=== PATIENT | male | born 1950 | race Caucasian/White ===

== ENCOUNTER 2017-05-27 18:44 | Emergency (ER) | payer OTHER, MEDICARE ==
--- NOTE | 2017-05-27 20:00 | ER Document Report ---
ED Medical Screen (RME) - General Chief Complaint: Headache Stated Complaint: HEADACHE Time Seen by Provider: 05/27/17 19:51 Notes: Patient states 2 years ago he fell down 18 steps. He states ever since he has had severe headaches. He states no workup or imaging has been done. He states that he takes 2-3 g of Tylenol at a time to try to alleviate the pain. TRAVEL OUTSIDE OF THE [place] IN LAST 30 DAYS: No - Related Data Allergies/Adverse Reactions: No Known Allergies Allergy (Verified 05/27/17 18:45) Past Medical History - Social History Chew tobacco use (# tins/day): No Frequency of alcohol use: None Drug Abuse: None - Past Medical History Cardiac Medical History: Reports: Hx Congestive Heart Failure, Hx Heart Attack - 12/2014, Hx Hypertension Pulmonary Medical History: Reports: Hx Asthma, Hx COPD Neurological Medical History: Denies: Hx Cerebrovascular Accident, Hx Seizures Renal/ Medical History: Denies: Hx Peritoneal Dialysis GI Medical History: Denies: Hx Hepatitis, Hx Hiatal Hernia, Hx Ulcer Musculoskeltal Medical History: Reports Hx Arthritis Psychiatric Medical History: Reports: Hx Depression Infectious Medical History: Denies: Hx Hepatitis Past Surgical History: Reports: Hx Cardiac Catheterization - 7stents, Hx Cardiac Surgery - 3 stents placed, Hx Coronary Stent - X7, Hx Neurologic Surgery - C-SPINE FUSION, Hx Orthopedic Surgery - knee, neck. Denies: Hx Open Heart Surgery, Hx Pacemaker - Immunizations Hx Diphtheria, Pertussis, Tetanus Vaccination: Yes History of Influenza Vaccine for 01/2017 - 06/2017 Season: Yes Influenza Administration Date for 01/2017 - 06/2017 Season: 01/04/17 Physical Exam - Vital signs Vitals: Temp Pulse Resp BP Pulse Ox 98.5 F 72 18 128/85 H 97 05/27/17 19:40 05/27/17 19:40 05/27/17 19:40 05/27/17 19:40 05/27/17 19:40 Course - Vital Signs Vital signs: Temp Pulse Resp BP Pulse Ox 98.5 F 72 18 128/85 H 97 05/27/17 19:40 05/27/17 19:40 05/27/17 19:40 05/27/17 19:40 05/27/17 19:40
[2017-05-27 20:33] LABS: ABSOLUTE EOSINOPHILS # (AUTO) 0.1 10^3/uL (0.0-0.6); ABSOLUTE LYMPHOCYTES (AUTO) 1.9 10^3/uL (0.5-4.7); ABSOLUTE MONOCYTES (AUTO) 0.8 10^3/uL (0.1-1.4); ABSOLUTE NEUT (AUTO) 7.5 10^3/uL (1.7-8.2); BASOPHILS % (AUTO) 0.2 % (0-2); EOSINOPHILS % (AUTO) 0.9 % (0-6); HEMATOCRIT 42.5 % (37.9-51.0); HEMOGLOBIN 14.5 g/dL (13.5-17.0); LYMPHOCYTES % (AUTO) 18.5 % (13-45); MEAN CORPUSCULAR HEMOGLOBIN 29.5 pg (27.0-33.4); MEAN CORPUSCULAR HGB CONC 34.2 g/dL (32.0-36.0); MEAN CORPUSCULAR VOLUME 86 fl (80-97); MONOCYTES % (AUTO) 7.4 % (3-13); PLATELET COUNT 186 10^3/uL (150-450); RED BLOOD COUNT 4.93 10^6/uL (4.35-5.55); RED CELL DISTRIBUTION WIDTH 16.4 % (11.5-14.0); TOTAL CELLS COUNTED % (AUTO) 100 %; WHITE BLOOD COUNT 10.2 10^3/uL (4.0-10.5)
--- NOTE | 2017-05-27 20:50 | RADIOLOGY REPORT (SQ) ---
EXAM DESCRIPTION: CT HEAD WITHOUT COMPLETED DATE/TIME: 05/27/2017 8:33 pm REASON FOR STUDY: pain COMPARISON: 12/24/2014 TECHNIQUE: Axial images acquired through the brain without intravenous contrast. Images reviewed wi th bone, brain and subdural windows. Images stored on PACS. All CT scanners at this facility use dose modulation, iterative reconstruction, and/or weight based d osing when appropriate to reduce radiation dose to as low as reasonably achievable (ALARA). [facility]: Dose Right [facility]: CareDose [facility]: Dose Right [facility]: Teradose 4D [facility]: Smart Hochy eto RADIATION DOSE: CT Rad equipment meets quality standard of care and radiation dose reduction techniq ues were employed. CTDIvol: 64.6 mGy. DLP: 2068 mGy-cm. mGy. LIMITATIONS: None. FINDINGS: VENTRICLES: Normal size and contour. CEREBRUM: No masses. No hemorrhage. No midline shift. No evidence for acute infarction. Normal gra y/white matter differentiation. No areas of low density in the white matter. CEREBELLUM: No masses. No hemorrhage. No alteration of density. No evidence for acute infarction. EXTRAAXIAL SPACES: No fluid collections. No masses. ORBITS AND GLOBE: No intra- or extraconal masses. Normal contour of globe without masses. CALVARIUM: No fracture. PARANASAL SINUSES: No fluid or mucosal thickening. SOFT TISSUES: No mass or hematoma. OTHER: No other significant finding. IMPRESSION: No acute intracranial findings. EVIDENCE OF ACUTE STROKE: NO. COMMENT: Quality ID # [id number]: Final reports with documentation of one or more dose reduction techniques (e.g., Automated exposure control, adjustment of the mA and/or kV according to patient size, use of iterative reconstruction technique) TECHNICAL DOCUMENTATION: JOB ID: [id number] [place]-72 2010 [employer]- All Rights Reserved
[2017-05-27 20:54] LABS: ACETAMINOPHEN < 10 ug/mL (10-30); ALANINE AMINOTRANSFERASE 34 U/L (21-72); ALBUMIN 4.3 g/dL (3.5-5.0); ALKALINE PHOSPHATASE 59 U/L (38-126); ANION GAP 12 (5-19); ASPARTATE AMINO TRANSFERASE 19 U/L (17-59); BILIRUBIN,DIRECT 0.3 mg/dL (0.0-0.4); BILIRUBIN,TOTAL 0.4 mg/dL (0.2-1.3); BLOOD UREA NITROGEN 14 mg/dL (7-20); CALCIUM 9.4 mg/dL (8.4-10.2); CARBON DIOXIDE 23 mmol/L (22-30); CHLORIDE 103 mmol/L (98-107); GLUCOSE 86 mg/dL (75-110); POTASSIUM 4.4 mmol/L (3.6-5.0); SODIUM 138.4 mmol/L (137-145); TOTAL PROTEIN 6.8 g/dL (6.3-8.2)
[2017-05-27 21:07] LABS: APPEARANCE,URINE CLEAR; BILIRUBIN,URINE NEGATIVE (NEGATIVE); COLOR,URINE STRAW; GLUCOSE, URINE NEGATIVE (NEGATIVE); KETONES,URINE NEGATIVE (NEGATIVE); LEUKOCYTE ESTERASE,URINE NEGATIVE (NEGATIVE); NITRITE,URINE NEGATIVE (NEGATIVE); PROTEIN,URINE NEGATIVE (NEGATIVE); URINE SPECIFIC GRAVITY 1.003; UROBILINOGEN,URINE NEGATIVE mg/dL (<2.0)
[2017-05-27] MEDS ORDERED: PROCHLORPERAZINE EDISYLATE INJ 10 MG/2 ML VIAL IV ONE (22:33)
[2017-05-27] MEDS ORDERED: ONDANSETRON HCL INJ/PF 4 MG/2 ML SDV IV ONE (22:33)
[2017-05-27] MEDS ORDERED: DIPHENHYDRAMINE HCL 50 MG/ML VIAL IV ONE (22:33)
--- NOTE | 2017-05-27 22:33 | ER Document Report ---
ED Headache - General Mode of Arrival: Ambulatory Information source: Patient TRAVEL OUTSIDE OF THE [place] IN LAST 30 DAYS: No <MARITO ACEVES - Last Filed: 05/28/17 01:21> <ALFRED SALGUERO - Last Filed: 05/28/17 05:43> - General Chief Complaint: Headache Stated Complaint: HEADACHE Time Seen by Provider: 05/27/17 19:51 Notes: Patient is a 66-year-old male that presents to the emergency department today with complaints of a headache. Patient states that he has "only taken T[facility]ol because [facility]". Patient is wearing sunglasses in room complaining of photophobia. (MARITO ACEVES) - Related Data Allergies/Adverse Reactions: No Known Allergies Allergy (Verified 05/27/17 18:45) Past Medical History - General Information source: Patient - Social History Smoking Status: Current Every Day Smoker Cigarette use (# per day): Yes Chew tobacco use (# tins/day): No Frequency of alcohol use: None Drug Abuse: None Lives with: Family Family History: Reviewed & Not Pertinent, CAD, Hypertension Patient has suicidal ideation: No Patient has homicidal ideation: No - Past Medical History Cardiac Medical History: Reports: Hx Congestive Heart Failure, Hx Heart Attack - 12/2014, Hx Hypertension Pulmonary Medical History: Reports: Hx Asthma, Hx COPD Musculoskeltal Medical History: Reports Hx Arthritis Psychiatric Medical History: Reports: Hx Depression Past Surgical History: Reports: Hx Cardiac Catheterization - 7stents, Hx Cardiac Surgery - 3 stents placed, Hx Coronary Stent - X7, Hx Neurologic Surgery - C-SPINE FUSION, Hx Orthopedic Surgery - knee, neck - Immunizations Hx Diphtheria, Pertussis, Tetanus Vaccination: Yes Hx Pneumococcal Vaccination: 04/06/12 <MARITO ACEVES - Last Filed: 05/28/17 01:21> Review of Systems - Review of Systems Constitutional: No symptoms reported EENT: No symptoms reported Cardiovascular: No symptoms reported Respiratory: No symptoms reported Gastrointestinal: No symptoms reported Genitourinary: No symptoms reported Male Genitourinary: No symptoms reported Musculoskeletal: No symptoms reported Skin: No symptoms reported Hematologic/Lymphatic: No symptoms reported Neurological/Psychological: See HPI, Headaches -: Yes All other systems reviewed and negative <MARITO ACEVES - Last Filed: 05/28/17 01:21> Physical Exam <MARITO ACEVES - Last Filed: 05/28/17 01:21> <ALFRED SALGUERO - Last Filed: 05/28/17 05:43> - Vital signs Vitals: Temp Pulse Resp BP Pulse Ox 98.5 F 72 18 128/85 H 97 05/27/17 19:40 05/27/17 19:40 05/27/17 19:40 05/27/17 19:40 05/27/17 19:40 - Notes Notes: Physical Exam: General: Alert, appears uncomfortable. Wearing sunglasses in room complaining of photophobia. HEENT: Normocephalic. Atraumatic. PERRL. Extraocular movements intact. Oropharynx clear. Neck: Supple. Non-tender. Respiratory: No respiratory distress. Clear and equal breath sounds bilaterally. Cardiovascular: Regular rate and rhythm. Abdominal: Normal Inspection. Non-tender. No distension. Normal Bowel Sounds. Back: Non-tender. No deformity or step off. Extremities: Moves all four extremities. Upper extremities: Normal inspection. Normal ROM. Lower extremities: Normal inspection. No edema. Normal ROM. Neurological: Normal cognition. AAOx4. Normal speech. Cranial nerves II through XII grossly intact bilaterally. Psychological: Normal affect. Normal Mood. Skin: Warm. Dry. Normal color. (MARITO ACEVES) Course - Laboratory Result Diagrams: 05/27/17 20:16 05/27/17 20:16 <MARITO ACEVES - Last Filed: 05/28/17 01:21> - Laboratory Result Diagrams: 05/27/17 20:16 05/27/17 20:16 - Diagnostic Test Radiology reviewed: Reports reviewed <ALFRED SALGUERO - Last Filed: 05/28/17 05:43> - Re-evaluation Re-evalutation: 05/28/17 00:25 Patient reports some relief of headache with medication, reports having to urinate and requesting urinal. 05/28/17 01:13 Patient reports complete resolution of headache, wishes to be discharged. (MARITO ACEVES) Patient is a 66-year-old male who comes in with a headache. Patient has chronic headaches. States that [facility] and he has not seen a neurologist. Patient has a history of subarachnoid hemorrhage from a fall back in 2012 and has had intermittent headaches since then. CT head within normal limits. Blood work within normal limits. Patient is a complete resolution of headache with medication. He will be discharged home with antiemetics. He is to follow-up with his primary doctor and has been given the phone number for neurology. Understands and agrees with plan. Stable for discharge. AVSS, neurovascularly intact. He is to return if he has worsening symptoms. Understands agrees with plan. (ALFRED SALGUERO) - Vital Signs Vital signs: Temp Pulse Resp BP Pulse Ox 98.4 F 75 16 120/85 96 05/28/17 01:38 05/28/17 01:38 05/28/17 01:38 05/28/17 01:38 05/28/17 01:38 - Laboratory Laboratory results interpreted by me: 05/27/17 05/27/17 20:16 20:16 RDW 16.4 H Est GFR (Non-Af Amer) 58 L Acetaminophen < 10 L Discharge <MARITO ACEVES - Last Filed: 05/28/17 01:21> <ALFRED SALGUERO - Last Filed: 05/28/17 05:43> - Discharge Clinical Impression: Headache Qualifiers: Headache type: unspecified Headache chronicity pattern: acute headache Intractability: not intractable Qualified Code(s): R51 - Headache Condition: Stable Disposition: HOME, SELF-CARE Instructions: Headache ([facility]) Additional Instructions: Please follow-up with your doctor this week regarding her headache. If you have chronic headaches, please asked for referral to neurology. Prescriptions: Ondansetron [Zofran Odt 4 mg Tablet] 4 mg PO Q4HP PRN #30 tab.rapdis PRN Reason: Prochlorperazine Maleate [Compazine 10 mg Tablet] 10 mg PO TIDP PRN #30 tablet PRN Reason: Referrals: NADJA OLEA MD [ACTIVE STAFF] - Follow up in 1 month Scribe Attestation: 05/28/17 05:43 I personally performed the services described in the documentation, reviewed and edited the documentation which was dictated to the scribe in my presence, and it accurately records my words and actions. (ALFRED SALGUERO) Scribe Documentation - Scribe Written by Scribe:: Vale Jimenes, 05/27/2017 [id number] acting as scribe for :: Cassy <MARITO ACEVES - Last Filed: 05/28/17 01:21>
[2017-05-27] MEDS ORDERED: NORMAL SALINE 1000 ML 1,000 ML IV ONE (22:34)
[2017-05-27] MEDS ORDERED: KETOROLAC TROMETHAMINE INJ/PF 30 MG/1 ML SDV IV ONE (23:56)
[2017-05-28 01:40] VITALS: BP 120/85
== END 2017-05-28 01:40 | disposition home or self-care (01) ==
LOC: ER 18:44
DX: R51 Headache (principal); H53.149 Visual discomfort, unspecified; F17.210 Nicotine dependence, cigarettes, uncomplicated; I25.2 Old myocardial infarction; I10 Essential (primary) hypertension; J44.9 Chronic obstructive pulmonary disease, unspecified; Z95.5 Presence of coronary angioplasty implant and graft
CPT/HCPCS: 99284; 96374; 96375; 36415; 80307; 85025; 80053; 81001; 70450; J1200; J1885; J0780; J2405; J7030